=== PATIENT | male | born 1965 | race Caucasian/White ===

== ENCOUNTER 2024-08-31 15:36 | Emergency (ER) | payer OTHER, SELFPAY ==
[2024-08-31 16:05] VITALS: BP 173/103
[2024-08-31 16:38] LABS: % Basophils 0.5 % (0-2); % Eosinophils 4.2 % (0-6); % Immature Granulocytes 0.8 % (0-0.5); % Lymphocytes 26.4 % (20.5-51.1); % Neutrophils 61.1 % (42.2-75.2); Absolute Basophils 0.1 10^3/uL (0-0.2); Absolute Eosinophils 0.4 10^3/uL (0-0.7); Absolute Immature Granulocytes 0.1 10^3/uL (0-0.05); Absolute Lymphocytes 2.7 10^3/uL (1.2-3.4); Absolute Monocytes 0.7 10^3/uL (0.1-0.6); Absolute Neutrophils 6.2 10^3/uL (1.4-6.5); Hemoglobin 13.9 g/dL (13.0-18.0); Mean Corp Hgb Conc. 33.1 g/dL (33.0-37.0); Mean Corpuscular Hgb 29.5 pg (27.0-31.0); Mean Corpuscular Volume 89.2 fL (80.0-94.0); Mean Platelet Volume 8.7 fL (7.4-10.4); Nucleated Red Blood Cells % 0 % (-); Platelet Count 334 10^3/uL (130-400); Red Blood Cell Count 4.71 10^6/uL (4.70-6.10); Red Cell Dist. Width 13.9 % (11.5-14.5); White Blood Cell Count 10.2 10^3/uL (4.8-10.8)
[2024-08-31 16:52] LABS: ALT (SGPT) 44 U/L (0-50); AST (SGOT) 23 U/L (17-59); Albumin 4.6 g/dl (3.5-5.0); Alkaline Phosphatase 99 U/L (38-126); Blood Urea Nitrogen 34 mg/dl (9-20); Calcium 11.5 mg/dl (8.4-10.2); Carbon Dioxide 24 mmol/L (22-30); Chloride 103 mmol/L (98-107); Glucose 140 mg/dl (70-99); Potassium 5.2 mmol/L (3.5-5.1); Sodium 136 mmol/L (135-145); Total Bilirubin 0.6 mg/dl (0.2-1.3); Total Protein 7.9 g/dl (6.3-8.2); eGFR 37.74
[2024-08-31 18:47] VITALS: BP 149/125; BMI 36.4
[2024-08-31 18:49] VITALS: BP 149/125
[2024-08-31 18:55] LABS: Glucose - Point of Care 129 mg/dl (70-99)
[2024-08-31] MEDS: PERCOCET 5/325 1 TABLET PO (19:18)
[2024-08-31] MEDS: NSS 1000 IV (19:18)
--- NOTE | 2024-08-31 19:20 | ED.GENMED ---
History of Present Illness
General
Chief Complaint: Skin Problem
Source: patient
Exam Limitations: none
Time Seen by Provider: 08/31/24 18:50
Nursing documentation reviewed up to this point in time: agreed with
History of Present Illness
History of Present Illness:
58-year-old male presents with painful swelling on the nape of his neck started as a pimple few weeks ago saw his PCP today for follow-up for URI treated with some antibiotics, sent to the ER for evaluation no fever no nausea no vomiting previously
had some cloudy urine which cleared up with antibiotics, has had kidney stones before no flank pain or kidney stone pain now no hematuria
Past History
Past History
ED Past Medical History: NIDDM (Diet controlled) and Other (Kidney stones, basal cell carcinoma of the scalp removed); Negative Renal failure
Social History
Tobacco: Non-smoker
Alcohol: None
Drug: None
Personal:
Living: with family
Employment: Employed
Family History
Family History: Negative Diabetes, Hypertension or CAD
Review of Systems
Review of Systems
All Other Systems: ROS reviewed and negative except as documented in HPI and ROS
Constitutional: Denies fever or fatigue
EENT: Reports no symptoms
Respiratory: Reports no symptoms
Cardiac: Reports no symptoms
ABD/GI: Reports no symptoms; Denies abdominal pain
: Denies dysuria, incontinence or bleeding
Skin: Reports other (Painful swelling at the nape of the neck)
Phy Exam
Physical Exam
Physical Exam:
Physical Exam
General: no apparent distress, not acutely ill
Neck: 3 x 2 cm tender fluctuant area base of the skull
Heart: s1/s2 regular rate and rhythm, no murmur. equal radial pulses.
Lungs: no acute respiratory distress. clear bilaterally
Abdomen: Nontender
Neuro: alert and oriented. no focal neurological deficits
Skin: no rash
Psychiatric: well kept. interactive and cooperative
Extremities: no edema.
Course
Orders/Labs/Results
Orders:
Orders
08/31/24 16:30
Complete Blood Count/With Diff Urgent
Comprehensive Metabolic Panel Urgent
08/31/24 19:11
0.9% Sodium Chloride 1000 ml [Nss] 1,000 ml IV BOLUS
Oxycodone/Acetaminophen [Percocet 5/325] 1 tablet PO NOW STA
08/31/24 19:17
Wound Culture [Wound/Abscess/Other Culture] Urgent
REENA Source: Abscess
Specimen Description:
Date Specimen was Collected: 08/31/24
Time Specimen was Collected: 19:13
08/31/24 19:23
Clindamycin 600 mg/50 ml [Cleocin] 600 mg in 50 ml IV NOW
08/31/24 19:51
Urinalysis Reflex To Culture Urgent
Abnormal Lab Results
08/31/24 08/31/24
16:30 18:53
Abs Immat Gran (auto) 0.1 H 10^3/uL
(0-0.05)
Absolute Monos (auto) 0.7 H 10^3/uL
(0.1-0.6)
Immature Gran % 0.8 H %
(0-0.5)
Potassium 5.2 H mmol/L
(3.5-5.1)
BUN 34 H mg/dl
(9-20)
Creatinine 2.0 H mg/dL
(0.7-1.3)
Glucose 140 H mg/dl
(70-99)
Calcium 11.5 H mg/dl
(8.4-10.2)
POC Glucose 129 H mg/dl
(70-99)
08/31/24 16:30
08/31/24 16:30
Vital Signs
Initial and Last Documented VS:
Initial Vital Signs
Temp Pulse Resp BP Pulse Ox
98.4 F 82 20 173/103 97
08/31/24 16:05 08/31/24 16:05 08/31/24 16:05 08/31/24 16:05 08/31/24 16:05
Last Documented Vital Signs
Temp Pulse Resp BP Pulse Ox
98.5 F 91 27 163/85 93
08/31/24 18:47 08/31/24 18:51 08/31/24 18:51 08/31/24 20:00 08/31/24 20:15
Procedures
Incision/Drainage/Joint Aspiration
Lower Neck:
Anethesia: 1% Lidocaine with Epi and other (Marcaine)
Preparation: cleaned with Betadine
Type of procedure: drain
Nature of site: abscess
Description of abscess: greater than 3cm
Loculations broken up: Yes
How much fluid was obtained?: large amount
Fluid description: purulent
Treatment: packed with gauze and antibiotics started
MDM/Problems Addressed
Differential Diagnosis Includes:
Abscess cyst hematoma infected cyst
MDM/Problems Addressed:
Neck swelling
Chronic conditions affecting care: DM
Acute Exacerbation and/or Progression of Chronic Illness: DM
*Critical Care Note
Total Time (30-74mins, 75-104mins- exclusive of procedures): Not Applicable
Update Note
Update Note:
Update abscess strain, allergies noted labs noted we will try to find out which antibiotic he was on recently in the meantime we will give him some fluids, no NSAIDs obviously,
Update patient feeling better blood pressure decreased
ED Attending Note
-
Portions of this chart may have been created with voice recognition software.� Occasional wrong word or��sound alike� substitutions may have occurred due to the inherent limitations of voice recognition software.
Discharge Plan
Departure
Patient Disposition: Home (Routine Discharge)
Date of Disposition: 08/31/24
Time of Disposition: 20:42
Patient with high blood pressure during this ER visit?: Yes
Condition: Good
Covid-19: Not Applicable
Discharge Problem:
Abscess of skin
Instructions: Skin Abscess
Prescriptions:
New
clindamycin HCl [Cleocin HCl] 300 mg capsule
300 mg PO Q8H 7 Days Qty: 21 0RF
No Action
ibuprofen [Advil] 200 mg Tablet
600 mg PO Q6HPRN PRN (Reason: mild pain)
Referrals:
PRIVATE,PHYSICIAN [Family Provider] -
Activity Restrictions/Additional Instructions:
Keep the wound covered for 2 days, then remove the packing, if it comes out early is okay
Tylenol as needed for pain, do not use any ibuprofen as it can affect your kidneys
Antibiotics as prescribed
Drink plenty of fluids, follow-up with your primary care provider
Interventions
Interventions:
*Risk Screen - Suicide Last Done: 08/31/24 16:05
*General Assessment Last Done: 08/31/24 18:47
*Neglect/Abuse Screening Last Done: 08/31/24 18:47
*ED- Fall Risk Assessment Last Done: 08/31/24 18:47
*ED COVID-19 Vaccine History Last Done: 08/31/24 18:47
ED-Skin Assessment Last Done: 08/31/24 18:47
Discharge Date and Time
Print Language: [place]
[2024-08-31] MEDS: CLEOCIN 50 IV (19:53)
[2024-08-31 20:00] VITALS: BP 163/85
== END 2024-08-31 21:10 | disposition home or self-care (01) ==
LOC: EMR 15:36
PROVIDERS: Student in an Organized Health Care Education/Training Program; EMERGENCY PHYSICIAN Emergency Medicine
DX: L02.11 Cutaneous abscess of neck (principal); E11.9 Type 2 diabetes mellitus without complications; Z85.828 Personal history of other malignant neoplasm of skin; Z87.442 Personal history of urinary calculi
CPT/HCPCS: 99283; 10060; 96365; 80053; 82962; 85025; 87070; 87205